=== PATIENT | male | born 1950 | race Caucasian/White ===

== ENCOUNTER 2019-05-12 05:48 | Inpatient (IN) | payer MEDICAID ==
[~2019-05-12] VITALS: Ht 185.4 cm; Wt 138.6 kg
[~2019-05-12 05:48] MED LIST: AMLO10TA13 PO; ASPI-231 PO; ATOR20TA50 PO; CITA-244 PO; DICL-163 PO; GLIP10TA9 PO; HYDR25TA4 PO; METF-929 PO; OMEP20TA PO; PRIM50TA5 PO; TAMS0.4C36 PO; TRAZ100T3 PO
[2019-05-12] MEDS ORDERED: IODIXANOL 320MG/ML 100ML BTL IV ONE ×2 (07:12→07:58)
[2019-05-12] MEDS ORDERED: LIDOCAINE 2%HCL (LOCAL ANESTH.) INJ 20ML MDV ONE (07:12)
[2019-05-12] MEDS ORDERED: fentaNYL CITRATE 100 MCG/2 ML VL ONE (07:57)
[2019-05-12] MEDS ORDERED: MIDAZOLAM HCL 1MG/1ML-2 ML VIAL ONE (07:57)
[2019-05-12] MEDS ORDERED: ANGIOMAX 250 MG VIAL IV ONE ×2 (07:57→08:46)
[2019-05-12] MEDS ORDERED: SODIUM CHL 0.9% 50 ML ONE ×2 (07:58→08:46)
[2019-05-12] MEDS ORDERED: VERAPAMIL 2.5MG/ML INJ 2ML VIAL IV ONE (07:59)
[2019-05-12] MEDS ORDERED: HEPARIN SODIUM (PORCINE) 5000 UNITS/ML 1ML VIAL ONE (08:00)
[2019-05-12] MEDS ORDERED: ASPirin 325 MG TAB ONE (08:41)
[2019-05-12] MEDS ORDERED: TICAGRELOR 90 MG TAB ONE (08:41)
[2019-05-12] MEDS: ASPirin-EC 81 mg tab PO SCH (09:27)
[2019-05-12] MEDS ORDERED: ACETAMINOPHEN 500 MG TAB PO PRN (09:30)
[2019-05-12] MEDS ORDERED: HYDROcodone-ACET 5/325MG TAB PO PRN (09:30)
[2019-05-12] MEDS ORDERED: MORPHINE SULF INJ 2 MG/ML SYRINGE 1ML IV PRN (09:30)
[2019-05-12] MEDS ORDERED: DEXTROSE (50%) 50ML SYRG IV PRN (09:30)
[2019-05-12] MEDS ORDERED: ONDANSETRON HCL 4 MG/2 ML VIAL IV PRN (09:30)
[2019-05-12] MEDS ORDERED: NITROGLYCERIN 0.4 MG SL TAB SL PRN (09:30)
--- NOTE | 2019-05-12 09:53 | NUR ---
Report received froM JYOTI Mark. SANG PEÑA brought to Room 290B following Left Cardiac catheterization, on letterer and portable oxygen. Patient transfered to unit bed, connected to trust officer #[id number] and 2 L/NC. Catheterization site assessed for any bleeding, redness or swelling. Right Groin dressing clean, dry and intact. Pedal pulses on affected leg assessed for positive tissue perfusion. Patient instructed on need to notify staff immediately if any pain, burning or wetness to site, and any lower back pain. Bed set to lowest position/locked, bedside rails up x2, call light within reach. Instructed patient to call for assistance. Patient verbalized understanding. Will continue to monitor q1hr and prn.
[2019-05-12] MEDS ORDERED: PATIENTS OWN MEDICATION (Amlodipine Besylate 10 MG) PO SCH (10:00)
[2019-05-12] MEDS ORDERED: PATIENTS OWN MEDICATION (Omeprazole (Gnp Omeprazole) 20 MG) PO SCH (10:00)
[2019-05-12] MEDS ORDERED: PATIENTS OWN MEDICATION (Glipizide 10 MG) PO SCH (10:00)
--- NOTE | 2019-05-12 10:00 | NUR ---
VASC BAND REMOVED 2 ML 10:15 REMOVED 2 ML 10:30 REMOVED 2 ML 10:45 REMOVED 2 ML 11:00 REMOVED 2 ML REMOVED VASC BAND APPLIED 2X2 WITH TEGADERM. WILL CONTINUE TO MONITOR Q1HR AND CHANGES
[2019-05-12] MEDS: CITALOPRAM HYDROBR 20 MG TAB PO SCH (10:21)
[2019-05-12] MEDS: PANTOPRAZOLE 40 MG TAB PO SCH (10:21)
[2019-05-12] MEDS: ATORVASTATIN 20 MG TAB PO SCH (10:21)
[2019-05-12] MEDS: PRIMIDONE 50 MG TAB PO SCH (10:22)
[2019-05-12] MEDS: HCTZ 25 MG TAB PO SCH (10:22)
[2019-05-12] MEDS: glipiZIDE 5 MG TAB PO SCH (10:26)
[2019-05-12] MEDS: amLODIPine BESYLATE 5 MG TAB PO SCH (10:27)
[2019-05-12] MEDS: ACCU-CHEK COMFORT CURVE STRIP VI SCH ×3 (11:32→21:38)
[2019-05-12] MEDS: InsuLIN REG 1unit/0.01ml Soln (100units/ml) SC SCH ×3 (11:32→21:38)
[2019-05-12] MEDS ORDERED: FERR1TAB36 PO (12:54)
[2019-05-12 13:00] VITALS: BP 148/62
[2019-05-12] MEDS ORDERED: PRO625LQ PO (13:01)
[2019-05-12 17:00] VITALS: BP 142/67
[2019-05-12] MEDS ORDERED: TAMSULOSIN HYDROCHLORIDE 0.4 MG CAP PO SCH (18:00)
[2019-05-12] MEDS ORDERED: CLOPIDOGREL 300 MG TAB PO ONE (19:00)
[2019-05-12] MEDS ORDERED: PATIENTS OWN MEDICATION (Trazodone Hcl 100 MG) PO SCH (22:00)
[2019-05-12] MEDS ORDERED: traZODone HCL 50 MG TAB PO SCH (22:00)
[2019-05-13 05:35] VITALS: BP 152/70
[2019-05-13 05:36] VITALS: BP 151/69
[2019-05-13] MEDS: ACCU-CHEK COMFORT CURVE STRIP VI SCH (06:41)
[2019-05-13] MEDS: InsuLIN REG 1unit/0.01ml Soln (100units/ml) SC SCH (06:41)
[2019-05-13 09:00] VITALS: BP 143/72
[2019-05-13] MEDS ORDERED: CLOPIDOGREL BISULFATE 75 MG TAB PO SCH (10:00)
[2019-05-13] MEDS: glipiZIDE 5 MG TAB PO SCH (10:07)
[2019-05-13] MEDS: HCTZ 25 MG TAB PO SCH (10:07)
[2019-05-13] MEDS: ASPirin-EC 81 mg tab PO SCH (10:07)
[2019-05-13] MEDS: ATORVASTATIN 20 MG TAB PO SCH (10:07)
[2019-05-13] MEDS: amLODIPine BESYLATE 5 MG TAB PO SCH (10:08)
[2019-05-13] MEDS: PANTOPRAZOLE 40 MG TAB PO SCH (10:08)
[2019-05-13] MEDS: CITALOPRAM HYDROBR 20 MG TAB PO SCH (10:08)
[2019-05-13] MEDS: PRIMIDONE 50 MG TAB PO SCH (10:09)
[2019-05-13 11:06] VITALS: BP 143/72
--- NOTE | 2019-05-13 12:07 | NUR ---
Discharge instructions given as ordered. Encourage to follow up with PMD as instructed. All questions and concerns addressed. Patient verbalized understanding. Medication reconciliation form completed and copy given to patient. IV removed with catheter intact, pressure dressing applied, duarte catheter removed. Telemetry unit returned to ICU. Patient taken to vehicle via wheelchair with all personal belongings, accompanied by staff and family member. No distress noted at time of departure.
== END 2019-05-13 12:07 | disposition home or self-care (01) | DRG 175 ==
LOC: CATH 05:48 → TELE-WESTW 09:56
PROVIDERS: ADMIT Internal Medicine; ATTEND Hospitalist
PROC: 027034Z Dilation of Coronary Artery, One Artery with Drug-eluting Intraluminal Device, Percutaneous Approach (ICD-10-PCS; principal; 2019-05-12)
PROC: 4A023N7 Measurement of Cardiac Sampling and Pressure, Left Heart, Percutaneous Approach (ICD-10-PCS; 2019-05-12)
PROC: B2111ZZ Fluoroscopy of Multiple Coronary Arteries using Low Osmolar Contrast (ICD-10-PCS; 2019-05-12)
PROC: B2151ZZ Fluoroscopy of Left Heart using Low Osmolar Contrast (ICD-10-PCS; 2019-05-12)
DX: I25.10 Atherosclerotic heart disease of native coronary artery without angina pectoris (principal); E11.65 Type 2 diabetes mellitus with hyperglycemia; I11.9 Hypertensive heart disease without heart failure; E78.00 Pure hypercholesterolemia, unspecified; F32.9 Major depressive disorder, single episode, unspecified; E66.01 Morbid (severe) obesity due to excess calories; R94.39 Abnormal result of other cardiovascular function study; E78.5 Hyperlipidemia, unspecified; N40.0 Benign prostatic hyperplasia without lower urinary tract symptoms; Z68.41 Body mass index [BMI] 40.0-44.9, adult; Z86.73 Personal history of transient ischemic attack (TIA), and cerebral infarction without residual deficits
CPT/HCPCS: 36415; 82565; 82962; 92928; 93005; 93458; 99152; C1874; G0378; J1815; J2250; Q9967

== ENCOUNTER 2020-07-02 12:04 | Inpatient (IN) | payer MEDICARE, MEDICAID ==
[~2020-07-02] VITALS: Ht 182.9 cm; Wt 149.5 kg
[~2020-07-02 12:04] MED LIST changes: +AMLO-496 PO; -AMLO10TA13 PO; -ASPI-231 PO; +ASPI1TAB20 PO; +FERR1TAB36 PO; +PRO625LQ PO
[2020-07-02] MEDS ORDERED: ONDANSETRON HCL 4 MG/2 ML VIAL IV ONE (13:45)
[2020-07-02] MEDS ORDERED: HYDROmorphone HCL 2 MG/ML VL IV ONE (13:45)
[2020-07-02 13:59] LABS: Basophils # (auto) 0 10 ^3/uL (0-0.2); Basophils % (auto) 0.1 % (0.0-2.0); Eosinophils # (auto) 0 10 ^3/uL (0-0.8); Eosinophils % (auto) 0.1 % (0.0-7.0); Hematocrit 35.1 % (41.0-53.0); Hemoglobin 11.8 g/dL (13.5-17.5); Lymphocytes # (auto) 0.5 10 ^3/uL (0.4-5.4); Lymphocytes % (auto) 3.9 % (10.0-50.0); Mean Corpuscular Hgb Conc. 33.6 g/dL (32.0-36.0); Mean Corpuscular Volume 83.4 fL (80.0-100.0); Monocytes # (auto) 0.5 10 ^3/uL (0-1.3); Monocytes % (auto) 4.1 % (0.0-12.0); Neutrophils # (auto) 12.2 10 ^3/uL (1.6-8.6); Neutrophils % (auto) 91.8 % (37.0-80.0); Red Blood Cells 4.21 10^6/uL (4.5-5.90); Red Cell Distribution Width 15.1 % (11.8-14.3); White Blood Cell 13.3 10^3/uL (4.4-10.8)
[2020-07-02] MEDS ORDERED: MORPHINE SULFATE INJECTION 2 MG/ML SYRG IV PRN (14:00)
[2020-07-02] MEDS ORDERED: NITROGLYCERIN 0.4 MG SL TAB SL PRN (14:00)
[2020-07-02 14:22] LABS: INR 0.97 (0.9-1.15); Partial Thromboplastin Time 27.9 sec (23.0-31.2)
[2020-07-02 14:35] LABS: Albumin 3.4 g/dL (3.4-5.0); Anion Gap 8 (5-15); Blood Urea Nitrogen 17 mg/dL (7-18); Carbon Dioxide 26 mmol/L (21-32); Chloride 98 mmol/L (98-107); Glucose 202 mg/dL (74-106); Magnesium 1.6 mg/dL (1.6-2.6); Potassium 4.1 mmol/L (3.5-5.1); Sodium 132 mmol/L (136-145)
[2020-07-02 14:44] LABS: Alanine Aminotransferase 17 U/L (16-61); Alkaline Phosphatase 65 U/L (45-117); Aspartate Aminotransferase 16 U/L (15-37); BUN/Creatinine Ratio 20.2; Bilirubin, Total 0.6 mg/dL (0.2-1.0); GFR African American 116 mL/min; GFR Non-African American 95 mL/min
[2020-07-02] MEDS ORDERED: ALBUTEROL SULF HFA 90MCG INH 200DOSE IN PRN (15:00)
[2020-07-02] MEDS ORDERED: traMADol HCL 50 MG TAB PO PRN (15:15)
[2020-07-02] MEDS ORDERED: DEXTROSE (50%) 50ML SYRG IV PRN (15:15)
[2020-07-02] MEDS: SODIUM CHLORIDE 0.9% 1,000 ML IV SCH (15:15)
[2020-07-02] MEDS ORDERED: LACTULOSE 20Gm/30ML SOLN PO PRN (15:15)
[2020-07-02] MEDS ORDERED: TEMAZEPAM 15 MG CAP PO PRN (15:15)
[2020-07-02] MEDS ORDERED: levoFLOXacin 750MG 150 ML IV ONE (15:15)
[2020-07-02] MEDS ORDERED: DICL50TA4 PO (17:06)
[2020-07-02] MEDS ORDERED: TRAZ1TAB12 PO (17:06)
[2020-07-02] MEDS ORDERED: OMEP-260 PO (17:07)
[2020-07-02] MEDS: ONDANSETRON HCL 4 MG/2 ML VIAL IV PRN (17:09)
[2020-07-02] MEDS: ACCU-CHEK COMFORT CURVE STRIP VI SCH ×2 (17:09→21:53)
[2020-07-02] MEDS: MORPHINE SULFATE INJECTION 2 MG/ML SYRG IV PRN (17:09)
[2020-07-02] MEDS ORDERED: PROM1SOL4 PO (17:09)
[2020-07-02] MEDS ORDERED: GABA300C10 PO (17:10)
[2020-07-02] MEDS ORDERED: CLOP75TA28 PO (17:11)
[2020-07-02] MEDS: InsuLIN REG 1unit/0.01ml Soln (100units/ml) SC SCH ×2 (17:11→21:54)
[2020-07-02] MEDS ORDERED: INSUINJ37 SC (17:12)
[2020-07-02] MEDS ORDERED: RANO500T3 PO (17:13)
[2020-07-02] MEDS ORDERED: FER325T PO (17:23)
[2020-07-02] MEDS ORDERED: GLIP5TAB12 PO (17:24)
[2020-07-02 18:28] LABS: Urine Bacteria NONE SEEN /hpf (None Seen); Urine Blood Negative /uL (Negative); Urine Specific Gravity 1.019 (1.001-1.035); Urine WBC <1 /hpf (0 - 3)
[2020-07-02] MEDS: CLINDAMYCIN 300MG IV 50 ML IV SCH (21:53)
[2020-07-02] MEDS ORDERED: BUDESONIDE (INHALATION) 180 MCG IH IN SCH (22:00)
[2020-07-03] MEDS: SODIUM CHLORIDE 0.9% 1,000 ML IV SCH ×2 (04:09→17:55)
[2020-07-03] MEDS: MORPHINE SULFATE INJECTION 2 MG/ML SYRG IV PRN ×2 (04:52→09:20)
[2020-07-03] MEDS: ONDANSETRON HCL 4 MG/2 ML VIAL IV PRN ×2 (04:52→09:20)
[2020-07-03] MEDS: CLINDAMYCIN 300MG IV 50 ML IV SCH ×3 (06:19→21:04)
[2020-07-03 06:20] LABS: Basophils # (auto) 0 10 ^3/uL (0-0.2); Basophils % (auto) 0.2 % (0.0-2.0); Eosinophils # (auto) 0.1 10 ^3/uL (0-0.8); Eosinophils % (auto) 0.8 % (0.0-7.0); Hematocrit 31.8 % (41.0-53.0); Hemoglobin 11.1 g/dL (13.5-17.5); Lymphocytes # (auto) 0.8 10 ^3/uL (0.4-5.4); Lymphocytes % (auto) 10.4 % (10.0-50.0); Mean Corpuscular Hemoglobin 28.9 pg (28.0-32.0); Mean Corpuscular Hgb Conc. 34.8 g/dL (32.0-36.0); Monocytes # (auto) 0.7 10 ^3/uL (0-1.3); Monocytes % (auto) 9.1 % (0.0-12.0); Neutrophils # (auto) 5.9 10 ^3/uL (1.6-8.6); Neutrophils % (auto) 79.5 % (37.0-80.0); Nucleated Red Blood Cells % 0.1 %; Red Blood Cells 3.84 10^6/uL (4.5-5.90); Red Cell Distribution Width 14.9 % (11.8-14.3); White Blood Cell 7.4 10^3/uL (4.4-10.8)
[2020-07-03 06:37] LABS: Potassium 4.3 mmol/L (3.5-5.1)
[2020-07-03 06:47] LABS: BUN/Creatinine Ratio 18.1; Bilirubin, Total 0.6 mg/dL (0.2-1.0); Total Protein 6.5 g/dL (6.4-8.2)
[2020-07-03] MEDS: InsuLIN REG 1unit/0.01ml Soln (100units/ml) SC SCH ×4 (06:49→21:06)
[2020-07-03] MEDS: ACCU-CHEK COMFORT CURVE STRIP VI SCH ×4 (06:49→21:04)
[2020-07-03 08:38] VITALS: BP 134/67
[2020-07-03] MEDS: ENOXAPARIN SOD 40 MG/0.4 ML SYRINGE SC SCH (09:19)
[2020-07-03] MEDS: levoFLOXacin 500MG 100 ML IV SCH (09:21)
[2020-07-03] MEDS ORDERED: CHOLECALCIFEROL (VITD3) 2,000 UNIT CAP/TAB PO SCH (10:00)
[2020-07-03] MEDS ORDERED: ZINC SULFATE 220mg CAP or TAB PO SCH (10:00)
[2020-07-03] MEDS ORDERED: ASCORBIC ACID 1,000 MG TAB PO SCH (10:00)
[2020-07-03 13:00] VITALS: BP 135/63
[2020-07-03] MEDS: MORPHINE SULFATE 4 MG/ML SYR/VIAL IV PRN ×3 (14:10→23:13)
[2020-07-03 17:05] VITALS: BP 139/69
[2020-07-03] MEDS: traMADol HCL 50 MG TAB PO PRN (21:05)
[2020-07-03 22:00] VITALS: BP 144/66
[2020-07-04 05:00] VITALS: BP 148/76
[2020-07-04] MEDS: CLINDAMYCIN 300MG IV 50 ML IV SCH ×3 (05:31→21:44)
[2020-07-04] MEDS: MORPHINE SULFATE 4 MG/ML SYR/VIAL IV PRN ×4 (05:32→22:31)
[2020-07-04 05:34] LABS: Basophils # (auto) 0 10 ^3/uL (0-0.2); Basophils % (auto) 0.3 % (0.0-2.0); Eosinophils # (auto) 0 10 ^3/uL (0-0.8); Eosinophils % (auto) 0.6 % (0.0-7.0); Hematocrit 29.6 % (41.0-53.0); Hemoglobin 10.1 g/dL (13.5-17.5); Lymphocytes # (auto) 0.7 10 ^3/uL (0.4-5.4); Lymphocytes % (auto) 9.7 % (10.0-50.0); Mean Corpuscular Hemoglobin 28.5 pg (28.0-32.0); Mean Corpuscular Hgb Conc. 34.1 g/dL (32.0-36.0); Mean Corpuscular Volume 83.6 fL (80.0-100.0); Monocytes # (auto) 0.7 10 ^3/uL (0-1.3); Monocytes % (auto) 8.7 % (0.0-12.0); Neutrophils # (auto) 6.2 10 ^3/uL (1.6-8.6); Neutrophils % (auto) 80.7 % (37.0-80.0); Red Blood Cells 3.55 10^6/uL (4.5-5.90); White Blood Cell 7.7 10^3/uL (4.4-10.8)
[2020-07-04 05:52] LABS: Albumin 2.9 g/dL (3.4-5.0); Calcium 8.1 mg/dL (8.5-10.1)
[2020-07-04 05:54] LABS: BUN/Creatinine Ratio 24.2
[2020-07-04 05:57] LABS: Bilirubin, Total 0.4 mg/dL (0.2-1.0)
[2020-07-04] MEDS: ACCU-CHEK COMFORT CURVE STRIP VI SCH ×4 (06:16→21:44)
[2020-07-04] MEDS: SODIUM CHLORIDE 0.9% 1,000 ML IV SCH ×2 (06:17→20:35)
[2020-07-04] MEDS: InsuLIN REG 1unit/0.01ml Soln (100units/ml) SC SCH ×4 (06:19→22:11)
[2020-07-04 08:00] VITALS: BP 146/73
[2020-07-04] MEDS: ENOXAPARIN SOD 40 MG/0.4 ML SYRINGE SC SCH (10:26)
[2020-07-04] MEDS: levoFLOXacin 500MG 100 ML IV SCH (10:26)
[2020-07-04 12:30] VITALS: BP 139/98
[2020-07-04 17:10] VITALS: BP 162/72
[2020-07-04] MEDS ORDERED: hydrALAZINE HCL 20 MG/ML VL IV PRN (18:00)
[2020-07-04] MEDS ORDERED: amLODIPine BESYLATE 5 MG TAB PO ONE (18:00)
[2020-07-04] MEDS: ACETAMINOPHEN 500 MG TAB PO PRN (18:06)
[2020-07-04] MEDS: TEMAZEPAM 15 MG CAP PO PRN (21:44)
[2020-07-04 23:32] VITALS: BP 166/67
[2020-07-05] MEDS: CLINDAMYCIN 300MG IV 50 ML IV SCH ×3 (05:33→20:58)
[2020-07-05] MEDS: ACCU-CHEK COMFORT CURVE STRIP VI SCH ×4 (05:44→20:58)
[2020-07-05] MEDS: InsuLIN REG 1unit/0.01ml Soln (100units/ml) SC SCH ×4 (05:46→21:00)
[2020-07-05] MEDS: MORPHINE SULFATE 4 MG/ML SYR/VIAL IV PRN ×3 (05:49→20:58)
[2020-07-05 06:06] LABS: Basophils # (auto) 0 10 ^3/uL (0-0.2); Basophils % (auto) 0.5 % (0.0-2.0); Eosinophils # (auto) 0.2 10 ^3/uL (0-0.8); Eosinophils % (auto) 1.8 % (0.0-7.0); Hematocrit 29.5 % (41.0-53.0); Hemoglobin 10.2 g/dL (13.5-17.5); Lymphocytes # (auto) 0.9 10 ^3/uL (0.4-5.4); Lymphocytes % (auto) 9.9 % (10.0-50.0); Mean Corpuscular Hemoglobin 28.7 pg (28.0-32.0); Mean Corpuscular Hgb Conc. 34.4 g/dL (32.0-36.0); Mean Corpuscular Volume 83.2 fL (80.0-100.0); Monocytes # (auto) 0.8 10 ^3/uL (0-1.3); Monocytes % (auto) 8.9 % (0.0-12.0); Neutrophils # (auto) 7.3 10 ^3/uL (1.6-8.6); Neutrophils % (auto) 78.9 % (37.0-80.0); Red Blood Cells 3.55 10^6/uL (4.5-5.90); Red Cell Distribution Width 14.6 % (11.8-14.3); White Blood Cell 9.3 10^3/uL (4.4-10.8)
[2020-07-05 06:37] LABS: Potassium 3.9 mmol/L (3.5-5.1)
[2020-07-05 06:39] LABS: BUN/Creatinine Ratio 31.6
[2020-07-05 08:00] VITALS: BP 148/53
[2020-07-05] MEDS: ACETAMINOPHEN 500 MG TAB PO PRN (09:22)
[2020-07-05] MEDS: levoFLOXacin 500MG 100 ML IV SCH (09:23)
[2020-07-05] MEDS: ENOXAPARIN SOD 40 MG/0.4 ML SYRINGE SC SCH ×2 (09:23→09:35)
[2020-07-05] MEDS: SODIUM CHLORIDE 0.9% 1,000 ML IV SCH ×2 (11:41→22:08)
[2020-07-05] MEDS: ONDANSETRON HCL 4 MG/2 ML VIAL IV PRN (11:51)
[2020-07-05 12:00] VITALS: BP 161/72
[2020-07-05 16:00] VITALS: BP 152/72
[2020-07-05] MEDS: TEMAZEPAM 15 MG CAP PO PRN (21:01)
[2020-07-05 22:19] VITALS: BP 147/66
[2020-07-06] VITALS (9 sets, daily range): BP systolic 136–178; BP diastolic 50–86
[2020-07-06] MEDS: MORPHINE SULFATE 4 MG/ML SYR/VIAL IV PRN ×3 (03:02→20:26)
[2020-07-06] MEDS: CLINDAMYCIN 300MG IV 50 ML IV SCH (05:51)
[2020-07-06] MEDS: InsuLIN REG 1unit/0.01ml Soln (100units/ml) SC SCH ×4 (06:13→21:32)
[2020-07-06] MEDS: ACCU-CHEK COMFORT CURVE STRIP VI SCH ×4 (06:13→21:32)
[2020-07-06 06:55] LABS: INR 1.06 (0.9-1.15)
[2020-07-06] MEDS ORDERED: BUPIVACAINE W/ EPINEPH 0.25% INJ 50ML MDV ONE (06:55)
[2020-07-06 06:56] LABS: Basophils # (auto) 0 10 ^3/uL (0-0.2); Basophils % (auto) 0.2 % (0.0-2.0); Eosinophils # (auto) 0.3 10 ^3/uL (0-0.8); Eosinophils % (auto) 2.8 % (0.0-7.0); Hematocrit 29.8 % (41.0-53.0); Hemoglobin 10.4 g/dL (13.5-17.5); Lymphocytes # (auto) 0.9 10 ^3/uL (0.4-5.4); Lymphocytes % (auto) 8.2 % (10.0-50.0); Mean Corpuscular Hemoglobin 29.2 pg (28.0-32.0); Mean Corpuscular Hgb Conc. 34.9 g/dL (32.0-36.0); Mean Corpuscular Volume 83.6 fL (80.0-100.0); Monocytes # (auto) 0.8 10 ^3/uL (0-1.3); Neutrophils # (auto) 8.4 10 ^3/uL (1.6-8.6); Neutrophils % (auto) 80.8 % (37.0-80.0); Red Blood Cells 3.56 10^6/uL (4.5-5.90); Red Cell Distribution Width 14.9 % (11.8-14.3); White Blood Cell 10.4 10^3/uL (4.4-10.8)
[2020-07-06] MEDS ORDERED: VANCOMYCIN HCL 1000 MG VL ONE (06:58)
[2020-07-06 07:02] LABS: Calcium 8.6 mg/dL (8.5-10.1); Potassium 3.7 mmol/L (3.5-5.1)
[2020-07-06] MEDS ORDERED: MORPHINE SULF PF 2 MG/2 ML SYRG ONE (07:02)
[2020-07-06] MEDS ORDERED: KETOROLAC TROMETH 30 MG/ML 1ML VIAL ONE (07:02)
[2020-07-06] MEDS ORDERED: LIDOCAINE 1% HCL (LOCAL ANESTH.) INJ 20ML MDV ONE (07:03)
[2020-07-06] MEDS ORDERED: SUCCINYLCHOLINE CHLORIDE 20 MG/ML 10ML VIAL IV ONE (07:03)
[2020-07-06 07:08] LABS: BUN/Creatinine Ratio 30.5
[2020-07-06] MEDS ORDERED: ROCURONIUM 10MG/ML 10ML VIAL IV ONE (07:09)
[2020-07-06] MEDS ORDERED: HYDROmorphone HCL 2 MG/ML VL ONE (07:09)
[2020-07-06] MEDS ORDERED: SODIUM CHLORIDE LOCK 10 ML ONE (07:09)
[2020-07-06] MEDS ORDERED: fentaNYL CITRATE 100 MCG/2 ML VL ONE (07:09)
[2020-07-06] MEDS ORDERED: ONDANSETRON HCL 4 MG/2 ML VIAL ONE (07:09)
[2020-07-06] MEDS ORDERED: MIDAZOLAM HCL 2MG/2ML 2ml VIAL (1mg/ml) ONE (07:09)
[2020-07-06] MEDS ORDERED: fentaNYL CITRATE 5 ML ONE ×2 (07:09→08:44)
[2020-07-06] MEDS ORDERED: LIDOCAINE HCL 2% TOP JELLY 5ML TOP ONE (07:11)
[2020-07-06] MEDS ORDERED: ceFAZolin 1GM/50ML 100 ML IV ONE (07:26)
[2020-07-06] MEDS ORDERED: TRANEXAMIC ACID 10 ML ONE (07:32)
[2020-07-06] MEDS ORDERED: ETOMIDATE (2MG/ML) 20ML VIAL IV ONE (08:54)
[2020-07-06] MEDS: ENOXAPARIN SOD 40 MG/0.4 ML SYRINGE SC SCH (10:00)
[2020-07-06] MEDS: LACTATED RINGER'S 1,000 ML IV SCH (12:30)
[2020-07-06] MEDS ORDERED: ACCU-CHEK COMFORT CURVE STRIP VI ONE (12:45)
[2020-07-06] MEDS ORDERED: HYDROmorphone HCL 2 MG/ML VL IV PRN (12:45)
[2020-07-06] MEDS ORDERED: MORPHINE SULFATE 4 MG/ML SYR/VIAL IV PRN (12:45)
[2020-07-06] MEDS ORDERED: LABETALOL HCL 5 MG/ML 4ML SYRINGE IV ONE (13:08)
[2020-07-06] MEDS ORDERED: LABETALOL HCL 5 MG/ML ML 20ML VIAL IV ONE (13:10)
[2020-07-06] MEDS: ceFAZolin 2 GM in D5W 5% 100 ML IV SCH ×3 (14:22→21:55)
[2020-07-06] MEDS ORDERED: HYDROmorphone HCL 2 MG/ML VL IV ONE (15:00)
[2020-07-06] MEDS: ONDANSETRON HCL 4 MG/2 ML VIAL IV PRN ×2 (16:21→20:25)
[2020-07-06] MEDS ORDERED: amLODIPine BESYLATE 5 MG TAB PO ONE (16:45)
[2020-07-06] MEDS: traMADol HCL 50 MG TAB PO PRN (18:28)
[2020-07-06] MEDS: TAMSULOSIN HYDROCHLORIDE 0.4 MG CAP PO SCH (18:30)
[2020-07-06] MEDS ORDERED: BUTORPHANOL TARTRATE 2 MG/1 ML VIAL ONE (20:04)
[2020-07-06] MEDS: ACETAMINOPHEN 500 MG TAB PO PRN (20:34)
[2020-07-06] MEDS: TEMAZEPAM 15 MG CAP PO PRN (21:28)
[2020-07-06] MEDS: traZODone HCL 50 MG TAB PO SCH (21:29)
[2020-07-06] MEDS: RANOLAZINE ER 500 MG TAB PO SCH (21:29)
[2020-07-06] MEDS: PRIMIDONE 50 MG TAB PO SCH (21:29)
[2020-07-06] MEDS ORDERED: ceFAZolin 1GM/50ML 50 ML IV ONE (21:42)
[2020-07-07] MEDS: MORPHINE SULFATE 4 MG/ML SYR/VIAL IV PRN ×2 (01:19→05:51)
[2020-07-07] MEDS: ONDANSETRON HCL 4 MG/2 ML VIAL IV PRN ×2 (01:19→05:52)
[2020-07-07] MEDS: LACTATED RINGER'S 1,000 ML IV SCH (01:50)
[2020-07-07 04:58] VITALS: BP 131/69
[2020-07-07] MEDS: ceFAZolin 2 GM in D5W 5% 100 ML IV SCH ×3 (05:52→21:27)
[2020-07-07 05:57] LABS: Basophils # (auto) 0 10 ^3/uL (0-0.2); Basophils % (auto) 0.3 % (0.0-2.0); Eosinophils # (auto) 0.2 10 ^3/uL (0-0.8); Eosinophils % (auto) 1.5 % (0.0-7.0); Hemoglobin 9.3 g/dL (13.5-17.5); Lymphocytes # (auto) 0.7 10 ^3/uL (0.4-5.4); Lymphocytes % (auto) 6.2 % (10.0-50.0); Mean Corpuscular Hemoglobin 29.2 pg (28.0-32.0); Mean Corpuscular Hgb Conc. 34.2 g/dL (32.0-36.0); Mean Corpuscular Volume 85.3 fL (80.0-100.0); Monocytes % (auto) 8.9 % (0.0-12.0); Neutrophils # (auto) 9.1 10 ^3/uL (1.6-8.6); Neutrophils % (auto) 83.1 % (37.0-80.0); Red Blood Cells 3.17 10^6/uL (4.5-5.90); Red Cell Distribution Width 14.8 % (11.8-14.3); White Blood Cell 10.9 10^3/uL (4.4-10.8)
[2020-07-07 06:08] LABS: Albumin 2.6 g/dL (3.4-5.0); Calcium 7.9 mg/dL (8.5-10.1); Potassium 4.3 mmol/L (3.5-5.1)
[2020-07-07 06:11] LABS: BUN/Creatinine Ratio 37.1; Bilirubin, Total 0.7 mg/dL (0.2-1.0); Total Protein 6.1 g/dL (6.4-8.2)
[2020-07-07] MEDS: InsuLIN REG 1unit/0.01ml Soln (100units/ml) SC SCH ×4 (06:29→21:29)
[2020-07-07] MEDS: ACCU-CHEK COMFORT CURVE STRIP VI SCH ×4 (06:40→21:28)
[2020-07-07 08:15] VITALS: BP 138/68
[2020-07-07] MEDS ORDERED: HYDROmorphone HCL 2 MG/ML VL IV ONE (08:15)
[2020-07-07 09:00] VITALS: BP 130/68
[2020-07-07] MEDS: amLODIPine BESYLATE 5 MG TAB PO SCH (09:17)
[2020-07-07] MEDS: CITALOPRAM HYDROBR 20 MG TAB PO SCH (09:17)
[2020-07-07] MEDS: PANTOPRAZOLE 40 MG TAB PO SCH (09:18)
[2020-07-07] MEDS: ENOXAPARIN SOD 40 MG/0.4 ML SYRINGE SC SCH (09:18)
[2020-07-07] MEDS: RANOLAZINE ER 500 MG TAB PO SCH ×2 (09:18→21:27)
[2020-07-07 13:00] VITALS: BP 130/60
[2020-07-07] MEDS: HYDROmorphone HCL 2 MG/ML VL IV PRN ×3 (13:47→22:19)
[2020-07-07 17:00] VITALS: BP 154/77
[2020-07-07] MEDS: metFORMIN HYDROCHLORIDE 500 MG TAB PO SCH (18:03)
[2020-07-07] MEDS: TAMSULOSIN HYDROCHLORIDE 0.4 MG CAP PO SCH (18:03)
[2020-07-07] MEDS: glipiZIDE 5 MG TAB PO SCH (18:04)
[2020-07-07] MEDS: traZODone HCL 50 MG TAB PO SCH (21:27)
[2020-07-07] MEDS: GABAPENTIN 300 MG CAP PO SCH (21:27)
[2020-07-07] MEDS: PRIMIDONE 50 MG TAB PO SCH (21:27)
[2020-07-07] MEDS: INSULIN LANTUS (GLARGINE) 1 /0.01ml (100units/ml) SC SCH (21:28)
[2020-07-07 22:00] VITALS: BP 129/57
[2020-07-08] MEDS: traMADol HCL 50 MG TAB PO PRN ×2 (03:31→15:04)
[2020-07-08 05:00] VITALS: BP 116/79
[2020-07-08] MEDS: ceFAZolin 2 GM in D5W 5% 100 ML IV SCH ×3 (05:28→21:09)
[2020-07-08] MEDS: glipiZIDE 5 MG TAB PO SCH ×2 (06:00→18:06)
[2020-07-08] MEDS: ACCU-CHEK COMFORT CURVE STRIP VI SCH ×4 (06:01→21:11)
[2020-07-08] MEDS: InsuLIN REG 1unit/0.01ml Soln (100units/ml) SC SCH ×4 (06:02→21:13)
[2020-07-08 06:10] LABS: Hemoglobin 7.9 g/dL (13.5-17.5)
[2020-07-08 06:13] LABS: Hematocrit 22.6 % (41.0-53.0)
[2020-07-08] MEDS: metFORMIN HYDROCHLORIDE 500 MG TAB PO SCH ×2 (07:53→18:06)
[2020-07-08 08:15] VITALS: BP 141/59
[2020-07-08 09:00] VITALS: BP 141/59
[2020-07-08] MEDS: CITALOPRAM HYDROBR 20 MG TAB PO SCH (09:46)
[2020-07-08] MEDS: GABAPENTIN 300 MG CAP PO SCH ×2 (09:47→21:11)
[2020-07-08] MEDS: amLODIPine BESYLATE 5 MG TAB PO SCH (09:47)
[2020-07-08] MEDS: RANOLAZINE ER 500 MG TAB PO SCH ×2 (09:48→21:10)
[2020-07-08] MEDS: PANTOPRAZOLE 40 MG TAB PO SCH (09:48)
[2020-07-08] MEDS: HYDROmorphone HCL 2 MG/ML VL IV PRN ×3 (09:53→22:22)
[2020-07-08] MEDS: ENOXAPARIN SOD 40 MG/0.4 ML SYRINGE SC SCH (09:53)
[2020-07-08] MEDS: INSULIN LANTUS (GLARGINE) 1 /0.01ml (100units/ml) SC SCH ×2 (09:53→21:12)
[2020-07-08] MEDS: ACETAMINOPHEN 500 MG TAB PO PRN (10:00)
[2020-07-08] MEDS: CLOPIDOGREL BISULFATE 75 MG TAB PO SCH (10:30)
[2020-07-08] MEDS: Glucerna Carbsteady SHAKE Vanilla 8oz PO SCH ×2 (12:23→18:06)
[2020-07-08 13:00] VITALS: BP 138/84
[2020-07-08 16:32] VITALS: BP 137/59
[2020-07-08] MEDS: TAMSULOSIN HYDROCHLORIDE 0.4 MG CAP PO SCH (18:06)
[2020-07-08] MEDS: traZODone HCL 50 MG TAB PO SCH (21:10)
[2020-07-08] MEDS: PRIMIDONE 50 MG TAB PO SCH (21:11)
[2020-07-08 22:00] VITALS: BP 115/59
[2020-07-09 05:00] VITALS: BP 120/40
[2020-07-09] MEDS: ceFAZolin 2 GM in D5W 5% 100 ML IV SCH ×3 (05:30→21:07)
[2020-07-09] MEDS: HYDROmorphone HCL 2 MG/ML VL IV PRN ×2 (05:31→21:08)
[2020-07-09] MEDS: glipiZIDE 5 MG TAB PO SCH ×2 (06:03→17:53)
[2020-07-09] MEDS: ACCU-CHEK COMFORT CURVE STRIP VI SCH ×4 (06:03→21:08)
[2020-07-09] MEDS: InsuLIN REG 1unit/0.01ml Soln (100units/ml) SC SCH ×4 (06:04→21:10)
[2020-07-09 06:40] LABS: Basophils # (auto) 0 10 ^3/uL (0-0.2); Basophils % (auto) 0.2 % (0.0-2.0); Eosinophils # (auto) 0.1 10 ^3/uL (0-0.8); Eosinophils % (auto) 0.8 % (0.0-7.0); Hematocrit 25.1 % (41.0-53.0); Hemoglobin 8.5 g/dL (13.5-17.5); Lymphocytes # (auto) 0.8 10 ^3/uL (0.4-5.4); Lymphocytes % (auto) 6.4 % (10.0-50.0); Mean Corpuscular Hemoglobin 28.4 pg (28.0-32.0); Mean Corpuscular Volume 83.6 fL (80.0-100.0); Monocytes # (auto) 1.1 10 ^3/uL (0-1.3); Monocytes % (auto) 9.1 % (0.0-12.0); Neutrophils # (auto) 10.4 10 ^3/uL (1.6-8.6); Neutrophils % (auto) 83.5 % (37.0-80.0); Red Blood Cells 3.01 10^6/uL (4.5-5.90); White Blood Cell 12.5 10^3/uL (4.4-10.8)
[2020-07-09 06:54] LABS: Potassium 3.3 mmol/L (3.5-5.1)
[2020-07-09 07:02] LABS: Calcium 7.9 mg/dL (8.5-10.1)
[2020-07-09] MEDS: Glucerna Carbsteady SHAKE Vanilla 8oz PO SCH ×3 (08:19→17:53)
[2020-07-09] MEDS: metFORMIN HYDROCHLORIDE 500 MG TAB PO SCH ×2 (08:20→17:53)
[2020-07-09 09:16] VITALS: BP 110/52
[2020-07-09] MEDS: GABAPENTIN 300 MG CAP PO SCH ×2 (09:55→21:08)
[2020-07-09] MEDS: CITALOPRAM HYDROBR 20 MG TAB PO SCH (09:55)
[2020-07-09] MEDS: PANTOPRAZOLE 40 MG TAB PO SCH (09:56)
[2020-07-09] MEDS: CLOPIDOGREL BISULFATE 75 MG TAB PO SCH (09:56)
[2020-07-09] MEDS: amLODIPine BESYLATE 5 MG TAB PO SCH (09:56)
[2020-07-09] MEDS: ENOXAPARIN SOD 40 MG/0.4 ML SYRINGE SC SCH (09:56)
[2020-07-09] MEDS: RANOLAZINE ER 500 MG TAB PO SCH ×2 (09:56→21:08)
[2020-07-09] MEDS ORDERED: ALUM & MAG HYDROX-SIMETH LIQ(MAALOX) 30 ML PO PRN (12:15)
[2020-07-09] MEDS ORDERED: POTASSIUM EFFERVESENT TAB 25 MEQ PO ONE (12:15)
[2020-07-09 13:00] VITALS: BP 130/71
[2020-07-09] MEDS: INSULIN LANTUS (GLARGINE) 1 /0.01ml (100units/ml) SC SCH ×2 (13:25→21:10)
[2020-07-09 16:03] VITALS: BP 136/72
[2020-07-09] MEDS: TAMSULOSIN HYDROCHLORIDE 0.4 MG CAP PO SCH (17:52)
[2020-07-09] MEDS: PRIMIDONE 50 MG TAB PO SCH (21:07)
[2020-07-09] MEDS: traZODone HCL 50 MG TAB PO SCH (21:07)
[2020-07-09 22:00] VITALS: BP 130/97
[2020-07-10 05:14] VITALS: BP 142/83
[2020-07-10] MEDS: ceFAZolin 2 GM in D5W 5% 100 ML IV SCH (05:54)
[2020-07-10] MEDS: HYDROmorphone HCL 2 MG/ML VL IV PRN ×2 (05:54→13:05)
[2020-07-10] MEDS: glipiZIDE 5 MG TAB PO SCH (06:02)
[2020-07-10] MEDS: ACCU-CHEK COMFORT CURVE STRIP VI SCH ×2 (06:02→11:38)
[2020-07-10] MEDS: InsuLIN REG 1unit/0.01ml Soln (100units/ml) SC SCH ×2 (06:03→11:30)
[2020-07-10 07:00] LABS: Basophils # (auto) 0 10 ^3/uL (0-0.2); Basophils % (auto) 0.2 % (0.0-2.0); Eosinophils # (auto) 0.1 10 ^3/uL (0-0.8); Eosinophils % (auto) 0.7 % (0.0-7.0); Hematocrit 27.6 % (41.0-53.0); Lymphocytes # (auto) 0.8 10 ^3/uL (0.4-5.4); Lymphocytes % (auto) 6.1 % (10.0-50.0); Mean Corpuscular Hemoglobin 28.5 pg (28.0-32.0); Mean Corpuscular Hgb Conc. 32.7 g/dL (32.0-36.0); Mean Corpuscular Volume 87.2 fL (80.0-100.0); Monocytes # (auto) 1.1 10 ^3/uL (0-1.3); Monocytes % (auto) 8.9 % (0.0-12.0); Neutrophils # (auto) 10.8 10 ^3/uL (1.6-8.6); Neutrophils % (auto) 84.1 % (37.0-80.0); Red Blood Cells 3.17 10^6/uL (4.5-5.90); Red Cell Distribution Width 15.3 % (11.8-14.3); White Blood Cell 12.8 10^3/uL (4.4-10.8)
[2020-07-10 07:17] LABS: Potassium 4.1 mmol/L (3.5-5.1)
[2020-07-10 07:27] LABS: BUN/Creatinine Ratio 51.2; Calcium 8.1 mg/dL (8.5-10.1)
[2020-07-10 09:00] VITALS: BP 136/57
[2020-07-10] MEDS: Glucerna Carbsteady SHAKE Vanilla 8oz PO SCH ×2 (10:10→11:38)
[2020-07-10] MEDS: GABAPENTIN 300 MG CAP PO SCH (10:11)
[2020-07-10] MEDS: amLODIPine BESYLATE 5 MG TAB PO SCH (10:11)
[2020-07-10] MEDS: CITALOPRAM HYDROBR 20 MG TAB PO SCH (10:11)
[2020-07-10] MEDS: metFORMIN HYDROCHLORIDE 500 MG TAB PO SCH (10:11)
[2020-07-10] MEDS: CLOPIDOGREL BISULFATE 75 MG TAB PO SCH (10:12)
[2020-07-10] MEDS: RANOLAZINE ER 500 MG TAB PO SCH (10:12)
[2020-07-10] MEDS: PANTOPRAZOLE 40 MG TAB PO SCH (10:12)
[2020-07-10] MEDS: INSULIN LANTUS (GLARGINE) 1 /0.01ml (100units/ml) SC SCH (10:13)
[2020-07-10] MEDS: ENOXAPARIN SOD 40 MG/0.4 ML SYRINGE SC SCH (10:14)
[2020-07-10 13:00] VITALS: BP 129/79
== END 2020-07-10 15:00 | DRG 315 ==
LOC: EDBD 12:04 → ER 12:04 → TELE 12:05 → TELE-CENTR 07-03 06:06
PROVIDERS: ADMIT Internal Medicine; ATTEND Internal Medicine
PROC: 0RRK00Z Replacement of Left Shoulder Joint with Reverse Ball and Socket Synthetic Substitute, Open Approach (ICD-10-PCS; principal; 2020-07-06 07:52)
DX: S42.292A Other displaced fracture of upper end of left humerus, initial encounter for closed fracture (principal); N17.0 Acute kidney failure with tubular necrosis; E87.1 Hypo-osmolality and hyponatremia; E66.01 Morbid (severe) obesity due to excess calories; Z20.822 Contact with and (suspected) exposure to COVID-19; D72.829 Elevated white blood cell count, unspecified; K42.9 Umbilical hernia without obstruction or gangrene; D63.8 Anemia in other chronic diseases classified elsewhere; J98.11 Atelectasis; E78.5 Hyperlipidemia, unspecified; W01.0XXA Fall on same level from slipping, tripping and stumbling without subsequent striking against object, initial encounter; Y93.01 Activity, walking, marching and hiking; L03.316 Cellulitis of umbilicus; F32.9 Major depressive disorder, single episode, unspecified; N18.9 Chronic kidney disease, unspecified; I13.10 Hypertensive heart and chronic kidney disease without heart failure, with stage 1 through stage 4 chronic kidney disease, or unspecified chronic kidney disease; E11.22 Type 2 diabetes mellitus with diabetic chronic kidney disease; K21.9 Gastro-esophageal reflux disease without esophagitis; E11.40 Type 2 diabetes mellitus with diabetic neuropathy, unspecified; L98.9 Disorder of the skin and subcutaneous tissue, unspecified; I25.10 Atherosclerotic heart disease of native coronary artery without angina pectoris; Z95.5 Presence of coronary angioplasty implant and graft; Z68.41 Body mass index [BMI] 40.0-44.9, adult; Z86.73 Personal history of transient ischemic attack (TIA), and cerebral infarction without residual deficits; Y92.89 Other specified places as the place of occurrence of the external cause; Y99.8 Other external cause status; Z82.49 Family history of ischemic heart disease and other diseases of the circulatory system; Z83.3 Family history of diabetes mellitus; Z79.899 Other long term (current) drug therapy
CPT/HCPCS: 36415; 51702; 70450; 71045; 72125; 72170; 73020; 73030; 73200; 76001; 80048; 80053; 81001; 82962; 83036; 83735; 83880; 84443; 84484; 85014; 85018; 85025; 85610; 85730; 86850; 86900; 86901; 87086; 87426; 93005; 93306; 96374; 96375; 97110; 97163; 97530; G0378; J0330; J0690; J1815; J1885; J1956; J2001; J2250; J2405; J3490; J7060